=== PATIENT | male | born 1965 | race Caucasian/White ===

== ENCOUNTER 2016-03-08 08:14 | Day surgery (SDC) | payer OTHER ==
[~2016-03-08 08:14] MED LIST: PROPOFOL 500 MG/50 ML EMU IV ONE
[2016-03-08] MEDS: FLEET ENEMA PR ONE (08:48)
[2016-03-08 09:46] VITALS: BP 128/84; PULSE 68; RESP 18; TEMP 97.7; O2SAT 97
== END 2016-03-08 10:05 | disposition home or self-care (01) | DRG 951 ==
LOC: SURG 08:14
PROVIDERS: ATTEND Surgery
DX: Z12.11 Encounter for screening for malignant neoplasm of colon (principal)